=== PATIENT | male | born 1950 | race African-American/Black ===

== ENCOUNTER 2019-09-13 14:59 | Emergency (ER) | payer OTHER, SELFPAY ==
[2019-09-13 15:02] VITALS: BP 90/52; PULSE 76; RESP 18; TEMP 36.8; O2SAT 97; BMI 23.1
--- NOTE | 2019-09-13 15:24 | CT_ITS ---
STUDY: CT ABDOMEN AND PELVIS WITH CONTRAST REASON FOR EXAM: Male, 69 years old. LUQ PAIN AND TENDERNESS, CRUSHED BY A PALLET ON LT SIDE, INJURY TO LT HEMITHORAX RADIATION DOSAGE (If Supplied By Facility): CTDIvol = ( 20.95 ) mGy, DLP = ( 1016.55 ) mGycm TECHNIQUE: Transaxial images were obtained from the dome of the diaphragm to the symphysis pubis without oral contrast. IV 100mL Isovue-300 was administered. Sagittal and coronal images were reconstructed. Individualized dose optimization techniques were used for this CT. COMPARISON: None. FINDINGS: Mild edema is seen in the left lower lobe. Numerous cysts are scattered throughout the liver with benign features. A rounded mixed hyperdense and hypodense nodule is present in the medial aspect of the left lobe of the liver measuring 2.33 cm favored to represent an and typical hemangioma or focal nodular hyperplasia, however dedicated liver protocol imaging is recommended to ensure no malignant process is present. Normal gallbladder and extrahepatic biliary system. Normal spleen. Normal pancreas. There are small, circumscribed, smooth, low attenuation bilateral adrenal masses, consistent with an adrenal adenoma. Multiple small nonenhancing benign cysts are scattered throughout both kidneys. No solid masses are present. No hydronephrosis. Normal visualized stomach. Normal small intestine. There are multiple colonic diverticula consistent with diverticulosis. The appendix is visualized and appears normal. There is diffuse atherosclerotic calcification of the abdominal aorta, without a demonstrated aneurysm. 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 Normal inferior vena cava. Normal retroperitoneum. Normal urinary bladder. The prostate gland is mildly enlarged and heterogeneous. Tiny fat-containing bilateral inguinal hernias are present. There are diffuse degenerative changes of the visualized lumbar spine. CT/Abdomen/Pelvis W IV Cont ONLY IMPRESSION: 1. A rounded mixed hyperdense and hypodense nodule is present in the medial aspect of the left lobe of the liver measuring 2.33 cm favored to represent an and typical hemangioma or focal nodular hyperplasia, however dedicated liver protocol imaging is recommended to ensure no malignant process is present. 2. Mild left lower lobe pulmonary edema. 3. Colonic diverticulosis. Electronically Signed: Dorian Shelby MD at 16:39 EDT , Service support ,
--- NOTE | 2019-09-13 15:24 | CT_ITS ---
STUDY: CT CHEST WITH CONTRAST REASON FOR EXAM: Male, 69 years old. LUQ PAIN AND TENDERNESS, CRUSHED BY A PALLET ON LT SIDE, INJURY TO LT HEMITHORAX RADIATION DOSAGE (If Supplied By Facility): CTDIvol = ( 20.95 ) mGy, DLP = ( 1016.55 ) mGycm TECHNIQUE: Transaxial imaging was performed following intravenous administration of IV 100mL Isovue-300. Individualized dose optimization techniques were used for this CT. COMPARISON: None. FINDINGS: Mild pulmonary edema is present at the periphery of the left lung. Diffuse cystic emphysematous changes are seen throughout both lungs. No demonstrated consolidation or pleural effusion or pneumothorax. No visualized acute rib fractures. Small benign lipomas are present in the left pectoralis major and bilateral latissimus dorsi muscles. Normal heart size and pericardium. There are calcifications of the coronary arteries. Normal mediastinum. Normal hilar regions. Normal enhanced pulmonary arteries. There is atherosclerotic calcification of the aortic arch with tortuosity and elongation of the aortic arch and descending thoracic aorta. There are multi-level degenerative changes of the thoracic spine and left shoulder. There is no demonstrated abnormality of the visualized upper abdomen. CT/Chest WITH Contrast IMPRESSION: 1. Mild edema in the left lung. 2. No consolidation or pleural effusion or pneumothorax 3. Cystic emphysematous changes bilaterally. Electronically Signed: Dorian Shelby MD at 16:52 EDT , Service support ,
--- NOTE | 2019-09-13 15:25 | ED.DCSUM_ITS ---
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 States he was using a pallet maia to take a pallet of dog food bags out of the truck, he states it probably weighs 3500 pounds, he was going down a slight grade and it started to get away from him. In trying to keep that from occurring, he was caught in between the palate and a shelf on the wall in the store, and the shelf injured him against the left lower anterolateral rib cage where he is complaining of severe pain. He states he had no other injury, it dropped into his knees because it was so painful, and making him feel short of breath because it hurts so much to breathe. He states he takes a high blood pressure medication, no anticoagulants. - Past Medical History (1) Hypertension Status: Chronic Past Medical History - Allergies and Home Meds Allergies/Adverse Reactions: Allergies No Known Allergies Allergy (Verified 09/13/19 15:09) Primary Care Physician: Oswaldo Aguirre [Other] Review of Systems General: Denies: Chills, Fever, Sweats Eyes: Denies: Visual changes - bilaterally, Diplopia ENT: Denies: Rhinorrhea, Sore throat Cardiovascular: Reports: Chest pain - Left lower rib cage. Denies: Palpitations Respiratory: Reports: Dyspnea - Due to painful breathing. Denies: Cough Gastrointestinal: Reports: Abdominal pain. Denies: Nausea, Vomiting, Diarrhea, Melena, Hematochezia Genitourinary: Denies: Dysuria, Hematuria, Frequency Musculoskeletal: Reports: Back pain. Denies: Neck pain, Extremity Pain Skin: Denies: Rash, Wounds Neurological: Denies: Headache, Weakness, Numbness Physical Exam Vital Signs/Narrative: Vital Signs Temp Pulse Resp BP Pulse Ox 09/13/19 15:02 98.2 F 76 18 90/52 L 97 Inital Vital Signs reviewed: Yes General: Well nourished, Well developed, - - No acute distress, moaning in pain. GCS 15. Head: Normocephalic, Atraumatic Eyes: Perrl, EOMI ENT: TM's clear, No hemotympanum or drainage, No trauma Neck: Nontender, Full ROM Cardiovascular: Regular rate, Regular rhythm, No murmurs Respiratory: No distress, CTA bilaterally, Chest tenderness - Throughout left hemithorax, exam is very limited due to voluntary guarding by the patient. Breath sounds are equal bilaterally. Trachea is midline. Patient resistant to taking a deep inspiration. Abdomen: Soft, Nondistended, Normal bowel sounds, Tender - Extremely tender left upper quadrant only, Guarding - Voluntary. Negative for: Rebound tenderness Back: Paraspinal Tenderness - Left lower rib cage posteriorly. No crepitance or subcutaneous emphysema palpated or double.. Negative for: Spinal Tenderness Extremeties: Full range of motion throughout, without evidence of trauma or limitation, limited exam of the left hip at the time of initial exam because patient is lying left lateral decubitus and when he tries to roll over onto his back he moans and goes back to left lateral decubitus Skin: Normal color, No rash, No Trauma Neurological: Alert, Oriented x3, Cranial nerves II-XII grossly intact, Normal Strength, Normal Sensation Psychological: Normal affect, Normal Mood - Glascow Coma Scale Eye Opening: Spontaneous Motor: Obeys Commands Verbal: Oriented Coma Scale Total: 15 Diagnostic/Tx/Re-eval Impressions Abdomen/Pelvis CT 09/13/19 15:24 IMPRESSION: 1. A rounded mixed hyperdense and hypodense nodule is present in the medial aspect of the left lobe of the liver measuring 2.33 cm favored to represent an and typical hemangioma or focal nodular hyperplasia, however dedicated liver protocol imaging is recommended to ensure no malignant process is present. 2. Mild left lower lobe pulmonary edema. 3. Colonic diverticulosis. Electronically Signed: Dorian Shelby MD at 16:39 EDT , Service support , Chest CT 09/13/19 15:24 IMPRESSION: 1. Mild edema in the left lung. 2. No consolidation or pleural effusion or pneumothorax 3. Cystic emphysematous changes bilaterally. Electronically Signed: Dorian Shelby MD at 16:52 EDT , Service support , 09/13/19 15:24 Abdomen/Pelvis W IV Cont ONLY [CT] Stat Chest WITH Contrast [CT] Stat Laboratory Results 09/13/19 09/13/19 15:19 15:19 WBC 7.2 RBC 4.53 L Hgb 13.2 Hct 41.2 MCV 90.9 MCH 29.1 MCHC 32.0 RDW Std Deviation 46.7 H RDW Coeff of Javier 14.0 Plt Count 210 MPV 9.9 Immature Gran % (Auto) 0.600 Neut % (Auto) 69.1 Lymph % (Auto) 19.9 [place] % (Auto) 8.4 Eos % (Auto) 1.7 Baso % (Auto) 0.3 Absolute Neuts (auto) 5.0 Absolute Lymphs (auto) 1.42 Nucleated RBC % 0 Sodium 142 Potassium 4.1 Chloride 111 H Carbon Dioxide 30.0 Anion Gap 1 L BUN 19 H Creatinine 1.47 H Estim Creat Clear Calc 52.71 Est GFR (MDRD) Af Amer 61 Est GFR (MDRD) Non-Af 50 L BUN/Creatinine Ratio 12.9 Glucose 107 H Calcium 9.0 - Medical Decision Making Patient's pain was controlled with several doses of fentanyl. He remained hemodynamically and clinically stable. CT of the chest, abdomen, pelvis with IV contrast shows a 7th mildly displaced rib fracture, along with associated pulmonary contusion without pneumothorax or other solid organ injury. Given this, he will require transfer to a trauma center, the patient is from [facility] and does not know hospitals here, and after discussion about options with him and his , he chooses [place]. Accepted there by Dr. Rey. ED Disposition - Plan for ED Patient: Disposition: [facility] Diagnosis: Left rib fracture, Left pulmonary contusion Referrals: Oswaldo Aguirre [Other]
[2019-09-13] MEDS: fentaNYL 100 MCG/2 ML Ampul 50 MCG IV ×2 (15:31→16:59)
[2019-09-13 15:34] LABS: Absolute Lymphocyte Count 1.42 X10^3/uL (0.83-4.51); Basophil# 0.02 X10^3/uL; Basophil% 0.3 % (0-1); Eosinophil# 0.12 X10^3/uL; Eosinophils% 1.7 % (0-5); Hematocrit 41.2 % (40-54); Hemoglobin 13.2 g/dL (13.0-16.5); Lymphocyte # 1.42 X10^3/ul (4.0); Lymphocyte % 19.9 % (19-41); Mean Corpuscular Hgb 29.1 pg (27.0-32.0); Mean Corpuscular Volume 90.9 fL (80-94); Mean Platelet Vol. 9.9 fl (6.2-12.0); Monocyte% 8.4 % (0-10); NRBC Flagged by Analyzer 0 % (0-5); Neutrophil # 4.95 X10^3/uL (2.7-7.7); Neutrophil % 69.1 % (47-70); Platelet Count 210 K/mm3 (150-450); RBC Distribution Width SD 46.7 fl (35.1-43.9); Red Blood Count 4.53 M/mm3 (4.6-6.2); White Blood Count 7.2 K/mm3 (4.4-11.0)
[2019-09-13 15:51] LABS: Anion Gap 1 (5-15); BUN 19 mg/dL (7-18); BUN/Creat Ratio 12.9 RATIO (10-20); Chloride 111 mmol/L (98-107); Creatinine, Serum 1.47 mg/dL (0.70-1.30); EST Glomerular Filtration Rate 50 mL/min (>60); Est Glom Filt Rate - Afr Amer 61 mL/min (>60); Estimated Creatinine Clearance 52.71 ml/min; Glucose 107 mg/dL (74-106); Potassium 4.1 mmol/L (3.5-5.1); Sodium Level 142 mmol/L (136-145)
[2019-09-13] MEDS: Ondansetron 4 MG/2 ML Vial IV (16:59)
--- NOTE | 2019-09-13 17:35 | NURSING ---
CALLING [facility] ABOUT TRANSFER
--- NOTE | 2019-09-13 17:52 | NURSING ---
CALLED [facility] FOR TRANSPORT. ETA IS 90 MIN
[2019-09-13 19:10] VITALS: PULSE 76; RESP 18
== END 2019-09-13 19:11 | disposition short-term general hospital (02) ==
PROVIDERS: Emergency Provider Emergency Medicine
DX: S22.32XA Fracture of one rib, left side, initial encounter for closed fracture (principal); S27.321A Contusion of lung, unilateral, initial encounter; W22.8XXA Striking against or struck by other objects, initial encounter; Y93.9 Activity, unspecified; Y92.9 Unspecified place or not applicable; I10 Essential (primary) hypertension; Z79.899 Other long term (current) drug therapy
CPT/HCPCS: 71260; 74177; 80048; 85025; 96374; 96375; 96376; 99285; Q9967; A4216; J2405